=== PATIENT | female | born 1950 | race Caucasian/White ===

== ENCOUNTER → 2017-02-22 | Outpatient (CLI) | payer MEDICARE ==
--- NOTE | 2017-02-22 16:52 | US ---
EXAMINATION TYPE: US pelvic complete DATE OF EXAM: 02/22/2017 COMPARISON: NONE CLINICAL HISTORY: 67-year-old female N95.0 Post menopausal bleeding. Discharge x 4 weeks, 4, para 3, miscarriage 1, history of and tubal ligation TECHNIQUE: Transvaginal (TV) and Transabdominal (TA) Date of LMP: 10+ years ago FINDINGS: Uterus: Anteverted measuring 8.2 x 3.2 x 4.3 cm. A scar is demonstrated. Additionally, th ere are prominent calcifications centrally along the uterine body and lower uterine segment. Endometrial Stripe: 0.3 cm Right Ovary: not seen Left Ovary: not seen No evident adnexal abnormality or cul-de-sac free fluid. IMPRESSION: 1. Prominent calcifications centrally within the uterus along the body and lower uterine segment. Fin dings could be secondary to prior infection or instrumentation. 2. Neither ovary could be visualized.
--- NOTE | 2017-02-22 16:56 | XR ---
EXAMINATION TYPE: XR chest 2V DATE OF EXAM: 02/22/2017 COMPARISON: 09/29/2013 HISTORY: 67-year-old female with shortness of breath for 6 months TECHNIQUE: PA and lateral views FINDINGS: The cardiomediastinal silhouette, aorta, and pulmonary vasculature are within normal limits. Lungs an d pleural spaces are clear. IMPRESSION: No acute cardiopulmonary process.
== END | disposition home or self-care (01) ==
LOC: RADUSWWP 12:30
PROVIDERS: ATTEND Family Medicine
DX: N85.8 Other specified noninflammatory disorders of uterus (principal); R06.00 Dyspnea, unspecified
CPT/HCPCS: 71020; 76830; 76856

== ENCOUNTER → 2018-04-28 | Outpatient (CLI) | payer MEDICARE ==
--- NOTE | 2018-04-30 14:25 | MM ---
Reason for exam: screening (asymptomatic). Last mammogram was performed 1 year and 1 month ago. History: Patient is postmenopausal and has history of other cancer at age 61. MG 3D Screening Mammo W/Cad Bilateral CC and MLO view(s) were taken. Prior study comparison: March 30, 2017, bilateral MG 3d screening mammo w/cad. March 26, 2016, bilateral MG 3d screening mammo w/cad. The breast tissue is heterogeneously dense. This may lower the sensitivity of mammography. There are stable benign calcifications in the right breast. No discrete abnormality. No significant changes when compared with prior studies. ASSESSMENT: Benign, BI-RAD 2 RECOMMENDATION: Routine screening mammogram of both breasts in 1 year.
== END | disposition home or self-care (01) ==
LOC: RADMAMWWP 13:47
PROVIDERS: ATTEND Family Medicine
DX: Z12.31 Encounter for screening mammogram for malignant neoplasm of breast (principal)
CPT/HCPCS: 77063; 77067

== ENCOUNTER → 2019-05-16 | Outpatient (CLI) | payer MEDICARE ==
--- NOTE | 2019-05-16 17:23 | BD ---
EXAMINATION TYPE: Axial Bone Density DATE OF EXAM: 05/16/2019 COMPARISON: 03/30/2017 CLINICAL HISTORY: 69-year-old female postmenopausal screening Height: 60.2 IN Weight: 134 LBS RISK FACTORS HISTORY OF: Active: YES Postmenopausal woman: AGE 57 Take estrogen and/or progesterone medications: NOT NOW How long: CONTROL FOR 5 YEARS MEDICATIONS: Additional Medications: CHOLESTEROL MEDS, EYE DROPS, FISH OIL, VIT B, TURMERIC, EXAM MEASUREMENTS: Bone mineral densitometry was performed using the [employer] System. Bone mineral density as measured about the Lumbar spine is: ----- L1-L4(G/cm2): 1.268 T Score Values are as follows: ----- L2: -0.5 ----- L3: 0.9 ----- L4: 2.9 ----- L1-L4: 0.7 Bone mineral density has: Increased 0.1% since study of: 03/30/2017 Bone mineral density about the R hip (g/cm2): 0.888 Bone mineral density about the L hip (g/cm2): 0.874 T Score values are as follows: -----R Neck: -1.1 -----L Neck: -1.2 -----R Total: -0.8 -----L Total: -0.4 Bone mineral density has: Decreased -2.7% since study of: 03/30/2017 IMPRESSION: Osteopenia (T Score between -2.5 and -1). There is slightly increased risk of fracture and the patient may be considered for treatment. Re-Screen 2-5 years. NOTE: T-SCORE=SD OF THE YOUNG ADULT MEAN.
--- NOTE | 2019-05-17 11:23 | MM ---
Reason for exam: screening (asymptomatic). Last mammogram was performed 1 year and 1 month ago. History: Patient is postmenopausal and has history of other cancer at age 61. Took hormonal contraceptives for 5 years. Physical Findings: A clinical breast exam by your physician is recommended on an annual basis and results should be correlated with mammographic findings. MG 3D Screening Mammo W/Cad Bilateral CC and MLO view(s) were taken. Prior study comparison: April 28, 2018, bilateral MG 3d screening mammo w/cad. March 30, 2017, bilateral MG 3d screening mammo w/cad. The breast tissue is heterogeneously dense. This may lower the sensitivity of mammography. There is no discrete abnormality. No significant changes when compared with prior studies. ASSESSMENT: Negative, BI-RAD 1 RECOMMENDATION: Routine screening mammogram of both breasts in 1 year.
== END | disposition home or self-care (01) ==
LOC: RADMAMWWP 12:32
PROVIDERS: ATTEND Family Medicine
DX: Z12.31 Encounter for screening mammogram for malignant neoplasm of breast (principal); M85.80 Other specified disorders of bone density and structure, unspecified site; Z78.0 Asymptomatic menopausal state
CPT/HCPCS: 77063; 77067; 77080

== ENCOUNTER 2020-02-19 17:01 | Emergency (ER) | payer MEDICARE ==
[2020-02-19 17:11] VITALS: RESP 18
[2020-02-19] MEDS ORDERED: PANTOPRAZOLE 40 MG/10 ML VIAL IVP STA (17:58)
[2020-02-19] MEDS ORDERED: MAG HYDROX/AL HYDROX/SIMETH 30 ML, HYOSCYAMINE ELIXIR 10 ML, LIDOCAINE VISCOUS 2% 10 ML PO STA ×3 (18:13)
--- NOTE | 2020-02-19 18:19 | ED ---
General Adult HPI - General Chief complaint: Chest Pain Stated complaint: heartburn-sent by PCP Time Seen by Provider: 02/19/20 17:58 Source: patient, RN notes reviewed, old records reviewed Mode of arrival: ambulatory Limitations: no limitations - History of Present Illness Initial comments: 70-year-old female presenting for evaluation of chest pain and indigestion. Patient's symptoms have been ongoing for several months, she called her primary care physician today who recommended she present to the emergency department for evaluation. She denies any exertional chest pain. She states that she believes this is just heart burn. No associated dyspnea. No vomiting. No diaphoresis. No known history of coronary artery disease. she is a nonsmoker, nondiabetic. - Related Data Home Medications Medication Instructions Recorded Confirmed Latanoprost Ophth [Xalatan 0.005%] 1 drops BOTH EYES HS 09/29/13 02/19/20 Timolol 0.5% Ophth Soln [Timoptic 1 drop BOTH EYES BID 09/29/13 02/19/20 0.5% Ophth Soln] Dorzolamide HCl/Pf [Dorzolamide 2% 1 drop BOTH EYES BID 02/19/20 02/19/20 Eye Drop] Naproxen Sodium [Aleve] 220 mg PO DAILY PRN 02/19/20 02/19/20 Previous Rx's Medication Instructions Recorded Omeprazole [PriLOSEC] 20 mg PO AC-BID #60 cap 02/19/20 Allergies Allergy/AdvReac Type Severity Reaction Status Date / Time No Known Allergies Allergy Verified 02/19/20 19:11 Review of Systems ROS Statement: Those systems with pertinent positive or pertinent negative responses have been documented in the HPI. ROS Other: All systems not noted in ROS Statement are negative. Past Medical History Additional Past Medical History / Comment(s): GLAUCOMA History of Any Multi-Drug Resistant Organisms: None Reported Past Surgical History: Section Past Anesthesia/Blood Transfusion Reactions: No Reported Reaction Past Psychological History: No Psychological Hx Reported Smoking Status: Never smoker Past Alcohol Use History: Occasional - Past Family History Mother Family Medical History: Hypertension General Exam Limitations: no limitations General appearance: alert, in no apparent distress Head exam: Present: atraumatic, normocephalic Eye exam: Present: normal appearance, PERRL ENT exam: Present: normal exam Neck exam: Present: normal inspection. Absent: tenderness, meningismus Respiratory exam: Present: normal lung sounds bilaterally. Absent: respiratory distress, wheezes Cardiovascular Exam: Present: regular rate, normal rhythm GI/Abdominal exam: Present: soft. Absent: distended, tenderness Extremities exam: Present: normal inspection, normal capillary refill. Absent: pedal edema, calf tenderness Neurological exam: Present: alert, oriented X3, CN II-XII intact. Absent: motor sensory deficit Psychiatric exam: Present: normal affect, normal mood Skin exam: Present: warm, dry, intact. Absent: cyanosis, diaphoretic Course Vital Signs 02/19/20 17:08 Temperature 98.1 F Pulse Rate 80 Respiratory 18 Rate Blood Pressure 124/69 O2 Sat by Pulse 97 Oximetry - Reevaluation(s) Reevaluation #1: 02/19/20 19:34 patient's symptoms resolved with GI cocktail and Protonix. EKG Findings - EKG Comments: EKG Findings:: EKG: Normal sinus rhythm, ST segment depression in the lateral precordial leads, no ST segment elevation.rate of 77, NC interval 146 QRS duration 80, QTc 423 Medical Decision Making - Medical Decision Making 62-year-old female presenting with burning epigastric and chest pain for the past one month or greater. She does not have any typical chest pain features. She has no known history of coronary artery disease. Her pain is resolved with a GI cocktail and Protonix. EKG is sinus rhythm without ST segment elevation, she has a negative troponin in the emergency department. She has a CBC showing leukopenia with an absolute neutrophils count of 800. She has a normal CMP. I did plan for this patient observation for further cardiac testing although I think her symptoms are likely related to gastric reflux. She declines. She feels completely better after GI cocktail and wishes to follow up as an outp atient. She will discuss her leukopenia with her primary care physician and she will discuss her additional symptoms with cardiology. She will be prescribed a proton pump inhibitor and will return with any worsening or changing symptoms. - Lab Data Result diagrams: 02/19/20 18:17 02/19/20 18:17 Lab Results 02/19/20 02/19/20 02/19/20 Range/Units 18:17 18:17 18:17 WBC 2.0 L (3.8-10.6) k/uL RBC 4.24 (3.80-5.40) m/uL Hgb 14.2 (11.4-16.0) gm/dL Hct 42.5 (34.0-46.0) % MCV 100.4 H (80.0-100.0) fL MCH 33.5 (25.0-35.0) pg MCHC 33.4 (31.0-37.0) g/dL RDW 12.2 (11.5-15.5) % Plt Count 106 L (150-450) k/uL Neutrophils % 39 % Lymphocytes % 46 % Monocytes % 7 % Eosinophils % 2 % Basophils % 2 % Neutrophils # 0.8 L (1.3-7.7) k/uL Lymphocytes # 0.9 L (1.0-4.8) k/uL Monocytes # 0.2 (0-1.0) k/uL Eosinophils # 0.1 (0-0.7) k/uL Basophils # 0.0 (0-0.2) k/uL PT 10.0 (9.0-12.0) sec INR 1.0 (<1.2) APTT 28.2 (22.0-30.0) sec Sodium 139 (137-145) mmol/L Potassium 4.3 (3.5-5.1) mmol/L Chloride 110 H (98-107) mmol/L Carbon Dioxide 25 (22-30) mmol/L Anion Gap 4 mmol/L BUN 23 H (7-17) mg/dL Creatinine 0.77 (0.52-1.04) mg/dL Est GFR (CKD-EPI)AfAm >90 (>60 ml/min/1.73 sqM) Est GFR (CKD-EPI)NonAf 80 (>60 ml/min/1.73 sqM) Glucose 98 (74-99) mg/dL Calcium 9.4 (8.4-10.2) mg/dL Magnesium 1.8 (1.6-2.3) mg/dL Total Bilirubin 1.1 (0.2-1.3) mg/dL AST 38 H (14-36) U/L ALT 20 (4-34) U/L Alkaline Phosphatase 59 (38-126) U/L Troponin I (0.000-0.034) ng/mL Total Protein 6.7 (6.3-8.2) g/dL Albumin 4.2 (3.5-5.0) g/dL Lipase 185 (23-300) U/L 02/19/20 Range/Units 18:17 WBC (3.8-10.6) k/uL RBC (3.80-5.40) m/uL Hgb (11.4-16.0) gm/dL Hct (34.0-46.0) % MCV (80.0-100.0) fL MCH (25.0-35.0) pg MCHC (31.0-37.0) g/dL RDW (11.5-15.5) % Plt Count (150-450) k/uL Neutrophils % % Lymphocytes % % Monocytes % % Eosinophils % % Basophils % % Neutrophils # (1.3-7.7) k/uL Lymphocytes # (1.0-4.8) k/uL Monocytes # (0-1.0) k/uL Eosinophils # (0-0.7) k/uL Basophils # (0-0.2) k/uL PT (9.0-12.0) sec INR (<1.2) APTT (22.0-30.0) sec Sodium (137-145) mmol/L Potassium (3.5-5.1) mmol/L Chloride (98-107) mmol/L Carbon Dioxide (22-30) mmol/L Anion Gap mmol/L BUN (7-17) mg/dL Creatinine (0.52-1.04) mg/dL Est GFR (CKD-EPI)AfAm (>60 ml/min/1.73 sqM) Est GFR (CKD-EPI)NonAf (>60 ml/min/1.73 sqM) Glucose (74-99) mg/dL Calcium (8.4-10.2) mg/dL Magnesium (1.6-2.3) mg/dL Total Bilirubin (0.2-1.3) mg/dL AST (14-36) U/L ALT (4-34) U/L Alkaline Phosphatase (38-126) U/L Troponin I <0.012 (0.000-0.034) ng/mL Total Protein (6.3-8.2) g/dL Albumin (3.5-5.0) g/dL Lipase (23-300) U/L Disposition Clinical Impression: Atypical chest pain, Leukopenia Disposition: HOME SELF-CARE Condition: Good Instructions (If sedation given, give patient instructions): Chest Pain (ED) Additional Instructions: please follow up with her primary care physician regarding her symptoms as well as low white blood cell count. Please follow with her net programmer, please return with any worsening or changing symptoms. Prescriptions: Omeprazole [PriLOSEC] 20 mg PO AC-BID #60 cap Is patient prescribed a controlled substance at d/c from ED?: No Referrals: Evan Tellez MD [Primary Care Provider] - 1-2 days Time of Disposition: 19:42
[2020-02-19 18:29] LABS: Basophils % (A) 2 %; Eosinophils # (A) 0.1 k/uL (0-0.7); Eosinophils % (A) 2 %; HCT 42.5 % (34.0-46.0); HGB 14.2 gm/dL (11.4-16.0); Lymphocytes # (A) 0.9 k/uL (1.0-4.8); Lymphocytes % (A) 46 %; MCH 33.5 pg (25.0-35.0); MCHC 33.4 g/dL (31.0-37.0); MCV 100.4 fL (80.0-100.0); Mean Platelet Volume 8.7; Monocytes # (A) 0.2 k/uL (0-1.0); Monocytes % (A) 7 %; Neutrophils # (A) 0.8 k/uL (1.3-7.7); Neutrophils % (A) 39 %; Platelet Count 106 k/uL (150-450); RBC 4.24 m/uL (3.80-5.40); RDW 12.2 % (11.5-15.5)
[2020-02-19 18:39] LABS: ALT 20 U/L (4-34); AST 38 U/L (14-36); African American GFR (CKD) >90 (>60 ml/min/1.73 sqM); Albumin 4.2 g/dL (3.5-5.0); Alkaline Phosphatase 59 U/L (38-126); Anion Gap 4 mmol/L; Blood Urea Nitrogen 23 mg/dL (7-17); Calcium 9.4 mg/dL (8.4-10.2); Carbon Dioxide 25 mmol/L (22-30); Chloride 110 mmol/L (98-107); Glucose 98 mg/dL (74-99); Lipase 185 U/L (23-300); Magnesium 1.8 mg/dL (1.6-2.3); Non-African American GFR(CKD) 80 (>60 ml/min/1.73 sqM); Potassium 4.3 mmol/L (3.5-5.1); Sodium 139 mmol/L (137-145); Total Bilirubin 1.1 mg/dL (0.2-1.3); Total Protein 6.7 g/dL (6.3-8.2)
--- NOTE | 2020-02-19 18:42 | XR ---
EXAMINATION TYPE: XR chest 2V DATE OF EXAM: 02/19/2020 COMPARISON: 02/22/2017 HISTORY: Short of breath. Chest pain TECHNIQUE: FINDINGS: Heart and mediastinum are normal. Lungs are clear of infiltrate. Costophrenic angles are cl ear. There are no hilar masses. The bony thorax is intact. IMPRESSION: No active cardiopulmonary disease. No change.
[2020-02-19 18:47] LABS: Partial Thromboplastin Time 28.2 sec (22.0-30.0)
[2020-02-19 20:03] VITALS: BP 120/68; PULSE 67; TEMP 99
== END 2020-02-19 20:03 | disposition home or self-care (01) ==
LOC: EC 17:01
DX: R07.89 Other chest pain (principal); D72.819 Decreased white blood cell count, unspecified
CPT/HCPCS: 36415; 93005; 83880; 80053; 83690; 83735; 84484; 85025; 85610; 85730; 71046; 99285; 96374; C9113

== ENCOUNTER → 2020-03-21 | Outpatient (CLI) | payer MEDICARE ==
--- NOTE | 2020-03-22 07:26 | XR ---
EXAMINATION TYPE: XR Hip Bilateral Complete DATE OF EXAM: 03/21/2020 COMPARISON: None HISTORY: Pain TECHNIQUE: Bilateral hips FINDINGS: Femoral heads articulate with the acetabulum. Joint spaces are preserved. No acute fracture or dislocation is evident. Symphysis pubis is visualized appears normal. Sacroiliac joints within th e [id number] are normal. IMPRESSION: 1. Normal bilateral hips
== END | disposition home or self-care (01) ==
LOC: RAD 17:01
PROVIDERS: ATTEND Nurse Practitioner
DX: M16.0 Bilateral primary osteoarthritis of hip (principal)
CPT/HCPCS: 73521

== ENCOUNTER → 2020-06-20 | Outpatient (CLI) | payer MEDICARE ==
--- NOTE | 2020-06-20 14:31 | MM ---
Reason for exam: screening (asymptomatic). Last mammogram was performed 1 year and 1 month ago. History: Patient is postmenopausal and has history of other cancer at age 61. Took hormonal contraceptives for 5 years. Physical Findings: A clinical breast exam by your physician is recommended on an annual basis and results should be correlated with mammographic findings. MG 3D Screening Mammo W/Cad Bilateral CC and MLO view(s) were taken. Prior study comparison: May 16, 2019, bilateral MG 3d screening mammo w/cad. April 28, 2018, bilateral MG 3d screening mammo w/cad. The breast tissue is heterogeneously dense. This may lower the sensitivity of mammography. Finding #1: There is a 14 mm mass in the left breast. Finding #2: There are typically benign calcifications in the right breast. ASSESSMENT: Incomplete: need additional imaging evaluation, BI-RAD 0 RECOMMENDATION: Special view mammogram of the left breast. If lesion persists on supplemental views, image directed ultrasound is recommended. [facility] will attempt to contact patient to return for supplemental views and ultrasound if indicated.
== END | disposition home or self-care (01) ==
LOC: RADMAMWWP 13:49
PROVIDERS: ATTEND Family Medicine
DX: Z12.31 Encounter for screening mammogram for malignant neoplasm of breast (principal)
CPT/HCPCS: 77063; 77067

== ENCOUNTER → 2020-06-25 | Outpatient (CLI) | payer MEDICARE ==
--- NOTE | 2020-06-25 09:51 | MM ---
Reason for exam: additional evaluation requested from abnormal screening. Last mammogram was performed less than 1 month ago. History: Patient is postmenopausal and has history of other cancer at age 61. Took hormonal contraceptives for 5 years. Physical Findings: Nurse did not find any significant physical abnormalities on exam. MG 3D Work Up W/Cad LT Spot compression CC, spot compression MLO, and ML view(s) were taken of the left breast. Prior study comparison: June 20, 2020, bilateral MG 3d screening mammo w/cad. May 16, 2019, bilateral MG 3d screening mammo w/cad. The breast tissue is heterogeneously dense. This may lower the sensitivity of mammography. Focal asymmetry, disperses on compression and ML view. This finding is changed when compared with previous exams. These results were verbally communicated with the patient and result sheet given to the patient on 06/25/20. ASSESSMENT: Probably benign, BI-RAD 3 RECOMMENDATION: Follow-up diagnostic mammogram of the left breast in 6 months.
== END ==
LOC: RADMAMWWP 08:15
PROVIDERS: ATTEND Family Medicine
DX: R92.8 Other abnormal and inconclusive findings on diagnostic imaging of breast (principal); Z78.0 Asymptomatic menopausal state
CPT/HCPCS: 77065; G0279; 77061

== ENCOUNTER → 2020-09-30 | Outpatient (CLI) | payer MEDICARE ==
[2020-09-30 14:20] LABS: African American GFR (CKD) >90 (>60 ml/min/1.73 sqM); Blood Urea Nitrogen 19 mg/dL (7-17); Non-African American GFR(CKD) >90 (>60 ml/min/1.73 sqM)
--- NOTE | 2020-09-30 15:49 | CT ---
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 Coronal and sagittal reconstructions performed. CT DLP: 328.80 mGycm Automated exposure control for dose reduction was used. FINDINGS: Partially visualized borderline enlarged caliber to the main right coronary artery at 2.7 cm. There m ay be some small calcified lymph nodes of the right hilum. Tiny hypodense nodule suggested within the thyroid gland measuring up to 5 mm. The submandibular glan ds appear satisfactory. Parotid glands show no discrete abnormality. Possible cerebellar tonsillar ectopia. This can be better assessed with MRI of the brain. Otherwise, visualized intracranial structures, orbits and globes, paranasal sinuses, and mastoid air cells appea r clear. The nasopharynx is clear. Nodularity extending into the left vallecular space suggests lingual tonsil lar hypertrophy. Oropharynx otherwise clear. Epiglottis and prevertebral soft tissues are satisfactory. Glottic and subglottic structures as well as the tracheal column appear clear. Biapical pleural paren chymal scarring. No cervical lymphadenopathy identified by CT size criteria. Bones: Hypertrophic facet arthropathy. Degenerative grade 1 anterolisthesis C4-C5 and C5-C6. IMPRESSION: 1. 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 MRI BRAIN CAN EXCLUDE A CHIARI I MALFORMATION. 2. MILD LINGUAL TONSILLAR HYPERTROPHY PARTICULARLY ON THE LEFT. THE REMAINDER OF THE MUCOSAL SPACE SH OWS NO DISCRETE ABNORMALITY BY CT. 3. NO CERVICAL LYMPHADENOPATHY OR SUSPICIOUS NECK MASS IDENTIFIED.
== END | disposition home or self-care (01) ==
LOC: RADCTMAIN 13:33
PROVIDERS: ATTEND Otolaryngology
DX: J38.01 Paralysis of vocal cords and larynx, unilateral (principal); J35.1 Hypertrophy of tonsils
CPT/HCPCS: 82565; 84520; 70491; 36415; Q9967

== ENCOUNTER → 2020-10-30 | Outpatient (CLI) | payer MEDICARE ==
--- NOTE | 2020-10-30 15:44 | US ---
EXAMINATION TYPE: US thyroid st tissue head/neck DATE OF EXAM: 10/30/2020 COMPARISON: CT 09/30/2020 CLINICAL HISTORY: E04.1 Thyroid Nodule. GLAND SIZE: Right Lobe: 4.2 x 1.4 x 1.6 cm Overall Parenchyma: heterogenous Left Lobe: 4.8 x 1.3 x 1.6 cm Overall Parenchyma: heterogeneous Isthmus Thickness: 0.3 cm NODULES RIGHT: # of nodules measured on right: Multiple small subcentimeter cysts throughout. LEFT: # of nodules measured on left: 2 1. 1.0 X 0.4 x 0.9 cm, lower mid, solid or almost completely solid, hypoechoic nodule, which is wi ana than tall, with smooth margins, without echogenic foci. Prior size: no prior 2. 0.9 X 0.6 x 0.8 cm, mid mid, solid or almost completely solid, hypoechoic nodule, which is wide r than tall, with smooth margins, without echogenic foci. Prior size: no prior ISTHMUS: # of nodules measured in the isthmus: 0 Bilateral neck scanned, no evidence of lymphadenopathy. IMPRESSION: Left thyroid nodules, as described. 2017 ACR TI-RADS LEVEL: TR-RADS 4 - Moderately Suspicious: Follow if > 1 cm, FNA if > 1.5 cm *Highest TI-RADS level nodule reported
== END | disposition home or self-care (01) ==
LOC: RADUSWWP 15:20
PROVIDERS: ATTEND Otolaryngology
DX: E04.2 Nontoxic multinodular goiter (principal)
CPT/HCPCS: 76536

== ENCOUNTER → 2021-01-01 | Outpatient (CLI) | payer MEDICARE ==
--- NOTE | 2021-01-07 12:13 | MM ---
Reason for exam: follow-up at short interval from prior study. Last mammogram was performed 6 months ago. History: Patient is postmenopausal and has history of other cancer at age 61. Took hormonal contraceptives for 5 years. Physical Findings: Nurse did not find any significant physical abnormalities on exam. MG 3D Diag Mammo W/Cad LT CC, MLO, and XCCL view(s) were taken of the left breast. Prior study comparison: June 20, 2020, bilateral MG 3d screening mammo w/cad. May 16, 2019, bilateral MG 3d screening mammo w/cad. The breast tissue is heterogeneously dense. This may lower the sensitivity of mammography. Asymmetric breast tissue left middle depth upper aspect, stable. There is no discrete abnormality. These results were verbally communicated with the patient and result sheet given to the patient on 01/01/21. ASSESSMENT: Benign, BI-RAD 2 RECOMMENDATION: Return to routine screening mammogram schedule for both breasts. Back on schedule.
== END | disposition home or self-care (01) ==
LOC: RADMAMWWP 10:21
PROVIDERS: ATTEND Family Medicine
DX: N64.89 Other specified disorders of breast (principal); Z85.89 Personal history of malignant neoplasm of other organs and systems
CPT/HCPCS: 77065; G0279; 77061

== ENCOUNTER → 2021-05-09 | Outpatient (CLI) | payer MEDICARE ==
--- NOTE | 2021-05-09 14:28 | US ---
EXAMINATION TYPE: US thyroid st tissue head/neck DATE OF EXAM: 05/09/2021 COMPARISON: US Thyroid 10/2020 CLINICAL HISTORY: E04.1 Thyroid Nodule. Follow up exam for thyroid nodules GLAND SIZE: Right Lobe: 4.7 x 1.5 x 1.7 cm Overall Parenchyma: heterogenous Left Lobe: 4.3 x 1.3 x 1.5 cm Overall Parenchyma: heterogeneous Isthmus Thickness: 0.28 cm NODULES RIGHT: # of nodules measured on right: 0 measured; multiple subcentimeter nodules throughout LEFT: # of nodules measured on left: 2 1. 1.0 X 0.6 x 0.9 cm, mid lateral, solid or almost completely solid, hypoechoic nodule, which is w ider than tall, with smooth margins, without echogenic foci. Prior size: 0.9 x 0.6 x 0.8 cm 2. 1.2 X 0.5 x 0.9 cm, lower mid, solid or almost completely solid, hypoechoic nodule, which is wi ana than tall, with smooth margins, without echogenic foci. TR 4 Prior size: 1.0 x 0.4 x 0.9 cm ISTHMUS: # of nodules measured in the isthmus: 1 1. 0.8 X 0.3 x 0.7 cm solid or almost completely solid, hypoechoic nodule, which is wider than tall , with smooth margins, without echogenic foci. Bilateral neck scanned, no evidence of lymphadenopathy. IMPRESSION: Moderately suspicious nodule left lobe thyroid. Follow-up in one year is recommended. 2017 ACR TI-RADS LEVEL: TR-RADS 4 - Moderately Suspicious: Follow if > 1 cm, FNA if > 1.5 cm *Highest TI-RADS level nodule reported
== END | disposition home or self-care (01) ==
LOC: RADUSWWP 10:13
PROVIDERS: ATTEND Otolaryngology
DX: E04.1 Nontoxic single thyroid nodule (principal)
CPT/HCPCS: 76536

== ENCOUNTER → 2021-07-23 | Outpatient (CLI) | payer MEDICARE ==
--- NOTE | 2021-07-23 17:11 | BD ---
EXAMINATION TYPE: Axial Bone Density DATE OF EXAM: 07/23/2021 COMPARISON: NONE CLINICAL HISTORY: 71 years year old Female. ICD-10 CODE: Z78.0 ASYMPTOMATIC MENOPAUSAL STATE Height: 61 Weight: 139.5 FRAX RISK QUESTIONS: Alcohol (3 or more units per day): NO Family History (Parent hip fracture): NO Glucocorticoids (More than 3mos): NO (Ex: prednisone, prednisolone, methylprednisolone, dexamethasone, and hydrocortisone). History of Fracture in Adulthood: NO Secondary Osteoporosis: 1. Type 1 Diabetes: NO 2. Hyperthyroidism: NO 3. Menopause before 45: NO Rheumatoid Arthritis: NO Current Tobacco Use: NO RISK FACTORS HISTORY OF: Active: YES Diet low in dairy products/other sources of calcium: YES Postmenopausal woman: YES MEDICATIONS: Additional Medications: CALCIUM EXAM MEASUREMENTS: Bone mineral densitometry was performed using the [employer] System. Bone mineral density as measured about the Lumbar spine is: ----- L1-L4(G/cm2): 1.242 T Score Values are as follows: ----- L1: -0.6 ----- L2: -0.6 ----- L3: -0.6 ----- L4: 2.1 ----- L1-L4: 0.5 Bone mineral density has: DECREASED -2.1% % since study of: 05.16.2019 Bone mineral density about the R hip (g/cm2): 0.888 Bone mineral density about the L hip (g/cm2): 0.914 T Score values are as follows: -----R Neck: -1.1 -----L Neck: -0.9 -----R Total: -0.8 -----L Total: -0.5 Bone mineral density has: INCREASED 0.1 % since study of: 05.16.2019 FRAX%s: The graph provided illustrates a 8.9% chance for a major osteoporotic fx and a 0.9% chance fo r the hips probability for fx in 10 years time. IMPRESSION: Osteopenia (T Score between -2.5 and -1). There is slightly increased risk of fracture and the patient may be considered for treatment. Re-Screen 2-5 years. NOTE: T-SCORE=SD OF THE YOUNG ADULT MEAN.
--- NOTE | 2021-07-25 10:39 | MM ---
Reason for exam: screening (asymptomatic). Last mammogram was performed 7 months ago. History: Patient is postmenopausal and has history of other cancer at age 61. Took hormonal contraceptives for 5 years. Physical Findings: A clinical breast exam by your physician is recommended on an annual basis and results should be correlated with mammographic findings. MG 3D Screening Mammo W/Cad Bilateral CC and MLO view(s) were taken. Prior study comparison: January 01, 2021, left breast MG 3d diag mammo w/cad LT. June 20, 2020, bilateral MG 3d screening mammo w/cad. May 16, 2019, bilateral MG 3d screening mammo w/cad. April 28, 2018, bilateral MG 3d screening mammo w/cad. The breast tissue is heterogeneously dense. This may lower the sensitivity of mammography. No significant changes when compared with prior studies. ASSESSMENT: Negative, BI-RAD 1 RECOMMENDATION: Routine screening mammogram of both breasts in 1 year.
== END | disposition home or self-care (01) ==
LOC: RADBDWWP 12:38
PROVIDERS: ATTEND Family Medicine
DX: Z12.31 Encounter for screening mammogram for malignant neoplasm of breast (principal); M85.851 Other specified disorders of bone density and structure, right thigh; Z78.0 Asymptomatic menopausal state
CPT/HCPCS: 77063; 77067; 77080

== ENCOUNTER → 2021-10-29 | Outpatient (CLI) | payer MEDICARE ==
--- NOTE | 2021-10-29 14:35 | US ---
EXAMINATION TYPE: US thyroid st tissue head/neck DATE OF EXAM: 10/29/2021 COMPARISON: US 04/2021 CLINICAL HISTORY: E04.1 NONTOXIC SINGLE THYROID NODULE. Nodules GLAND SIZE: Right Lobe: 4.4 x 1.3 x 1.4 cm Overall Parenchyma: heterogenous Left Lobe: 4.4 x 1.5 x 1.5 cm Overall Parenchyma: heterogeneous Isthmus Thickness: 0.3 cm NODULES RIGHT: # of nodules measured on right: 1 , multiple subcentimeter nodules seen throughout 1. 0.6 x 0.3 x 0.4 cm, upper mid, spongiform, hypoechoic nodule, which is wider than tall, with smoo th margins, with echogenic foci. LEFT: # of nodules measured on left: 2 1. 1.0 x 0.6 x 0.8cm, mid lateral, solid or almost completely solid, hypoechoic nodule, which is wid er than tall, with smooth margins, without echogenic foci. Prior size: 1.0 x 0.6 x 0.9 cm 2. 1.1 x 0.6 x 0.8 cm, lower mid, solid or almost completely solid, hypoechoic nodule, which is nikko ler than wide, with smooth margins, without echogenic foci. Prior size: 1.2 x 0.5 x 0.9cm ISTHMUS: # of nodules measured in the isthmus: 1 1. 0.9 X 0.3 x 0.6 cm spongiform, hypoechoic nodule, which is wider than tall, with smooth margins, without echogenic foci. Prior size:0.8 x 0.3 x 0.7cm Bilateral neck scanned, no evidence of lymphadenopathy. IMPRESSION: Stable nonspecific subcentimeter nodularity and glandular heterogeneity.
== END | disposition home or self-care (01) ==
LOC: RADUSWWP 13:28
PROVIDERS: ATTEND Otolaryngology
DX: E04.2 Nontoxic multinodular goiter (principal)
CPT/HCPCS: 76536

== ENCOUNTER → 2022-04-21 | Outpatient (CLI) | payer MEDICARE ==
--- NOTE | 2022-04-21 15:58 | US ---
EXAMINATION TYPE: US thyroid st tissue head/neck DATE OF EXAM: 04/21/2022 COMPARISON: 10/30/2020 CLINICAL HISTORY: 72-year-old female E04.1 Thyroid nod Thyroid nodule. TECHNIQUE: Multiple sonographic images of the thyroid gland are obtained. FINDINGS: GLAND SIZE: Right Lobe: 4.5 x 1.2 x 1.4 cm Overall Parenchyma: homogenous Left Lobe: 4.5 x 1.6 x 1.8 cm Overall Parenchyma: homogeneous Isthmus Thickness: .3 cm NODULES RIGHT: # of nodules measured on right: multiple subcentimeter cysts, largest upper pole. 1. .6 X .4 x .4 cm, cyst Prior size: .6 x .3 x .4 cm LEFT: # of nodules measured on left: 2 1. 1.2 X .7 x .9 cm, mid , solid or almost completely solid, hypoechoic TR4 nodule, which is wider than tall, with smooth margins, without echogenic foci. Prior size: 1.0 x .6 x .8 cm 2. 1.2 X .6 x .9 cm, lower , solid or almost completely solid, hypoechoic nodule, which is wider t [place] tall, with smooth margins, without echogenic foci. Prior size: 1.1 x .6 x .8 cm ISTHMUS: # of nodules measured in the isthmus: .3 1. .8 X .3 x .7 cm spongiform nodule Prior size: .9 x .3 x .6 cm Bilateral neck scanned, no evidence of lymphadenopathy. IMPRESSION: Multiple cysts in the right thyroid lobe measuring up to 6 mm. A solid TR4 nodule in the left lobe is slightly larger at 1.2 x 0.9 cm (versus 1.0 x 0.8 cm, previously). Continue to follow. FNA if it reilly ches 1.5 cm.
== END | disposition home or self-care (01) ==
LOC: RADUSWWP 12:01
PROVIDERS: ATTEND Otolaryngology
DX: E04.2 Nontoxic multinodular goiter (principal)
CPT/HCPCS: 76536

== ENCOUNTER → 2022-07-24 | Outpatient (CLI) | payer MEDICARE ==
--- NOTE | 2022-07-27 08:03 | MM ---
Reason for Exam: Screening (asymptomatic). Last screening mammogram was performed 12 month(s) ago. Patient History: Menarche at age 16. First Full-Term at age 29. Postmenopausal. Other cancer, age 61. Patient used Hormonal Contraceptives for 5 years. Risk Values: Harmony 5 year model risk: 1.7%. NCI Lifetime model risk: 5.1%. Prior Study Comparison: 06/25/2020 Left Diagnostic Mammogram, [facility]. 01/01/2021 Left Diagnostic Mammogram, [facility]. 07/23/2021 Bilateral Screening Mammogram, [facility]. Tissue Density: The breast tissue is heterogeneously dense. This may lower the sensitivity of mammography. Findings: Analyzed By CAD. There is no suspicious group of microcalcifications or new suspicious mass in either breast. Overall Assessment: Negative, BI-RAD 1 Management: Screening Mammogram of both breasts in 1 year. A clinical breast exam by your physician is recommended on an annual basis and results should be correlated with mammographic findings. Electronically signed and approved by: Kwesi Suazo M.D. Radiologis
== END | disposition home or self-care (01) ==
LOC: RADMAMWWP 13:16
PROVIDERS: ATTEND Family Medicine
DX: Z12.31 Encounter for screening mammogram for malignant neoplasm of breast (principal); Z78.0 Asymptomatic menopausal state
CPT/HCPCS: 77063; 77067

== ENCOUNTER → 2022-08-13 | Outpatient (CLI) | payer MEDICARE ==
[2022-08-13 15:58] LABS: ALT 13 U/L (8-44); AST 23 U/L (13-35); Chol/HDL Ratio 3.68 Ratio; LDL Cholesterol,Calculated 193.6 mg/dL (0.0-131.0); VLDL Calculation 11.06 mg/dL (5.00-40.00)
== END | disposition home or self-care (01) ==
LOC: LABWHC1 07:29
PROVIDERS: ATTEND Nurse Practitioner Acute Care
DX: E78.2 Mixed hyperlipidemia (principal)
CPT/HCPCS: 36415; 80061; 84450; 84460

== ENCOUNTER → 2022-11-11 | Outpatient (CLI) | payer MEDICARE ==
--- NOTE | 2022-11-11 10:41 | US ---
EXAMINATION TYPE: US thyroid st tissue head/neck DATE OF EXAM: 11/11/2022 COMPARISON: Multiple thyroid ultrasounds with most recent 04/21/2022 CLINICAL INDICATION: Female, 72 years old with history of E04.1 NONTOXIC SINGLE THYROID NODULE; follo w up on known bilateral nodules GLAND SIZE: Right Lobe: 4.8 x 1.3 x 1.7cm cm Overall Parenchyma: diffusely heterogenous with scattered small nodules Left Lobe: 4.3 x 1.4 x 1.4 cm Overall Parenchyma: diffusely heterogenous with scattered small nodules Isthmus Thickness: 0.2 cm NODULES RIGHT: # of nodules measured on right: 1 1. 0.9 X 0.3 x 0.5 cm cystic nodule at the lateral mid pole. TR 2. Prior size: 0.6 x 0.4 x 0.4 cm LEFT: # of nodules measured on left: 2 1. 1.1 X 0.9 x 0.9 cm smooth solid nodule at the mid pole with internal vascularity. TR 4. Prior size: 1.2 x 0.7 x 0.9 cm 2. 1.2 X 0.6 x 0.9 cm smooth solid nodule at the lower pole with internal vascularity. TR 4. Prior size: 1.2 x 0.6 x 0.9 cm ISTHMUS: # of nodules measured in the isthmus: 1 1. 0.9 X 0.3 x 0.5 cm septated cystic nodule at the left lateral aspect of the isthmus. TR 3. Prior size: 0.8 x 0.3 x 0.7 cm Bilateral neck scanned, no evidence of lymphadenopathy. IMPRESSION: Stable bilateral thyroid nodules with 2 TR 4 nodules within the left thyroid lobe measuring up to 1.2 cm. Continued follow-up is recommended.
== END | disposition home or self-care (01) ==
LOC: RADUSWWP 09:55
PROVIDERS: ATTEND Otolaryngology
DX: E04.2 Nontoxic multinodular goiter (principal)
CPT/HCPCS: 76536

== ENCOUNTER → 2023-07-26 | Outpatient (CLI) | payer MEDICARE ==
--- NOTE | 2023-07-26 17:03 | MM ---
Reason for Exam: Screening (asymptomatic). Last screening mammogram was performed 12 month(s) ago. Patient History: Menarche at age 16. First Full-Term at age 29. Postmenopausal. Other cancer, age 61. Patient used Hormonal Contraceptives for 5 years. Risk Values: Harmony 5 year model risk: 1.8%. NCI Lifetime model risk: 4.9%. Prior Study Comparison: 01/01/2021 Left Diagnostic Mammogram, [facility]. 07/23/2021 Bilateral Screening Mammogram, [facility]. 07/24/2022 Bilateral MG 3D screening mammo w/cad, [facility]. Tissue Density: The breasts are heterogeneously dense, which may obscure small masses. Findings: Analyzed By CAD. The pattern is symmetrical. There is a focal asymmetry in the upper left mediolateral oblique view present previously. Benign round calcifications within the right breast. No significant interval changes are evident No suspicious groups of microcalcifications, spiculated or lobular masses, architectural distortion or other secondary signs of malignancy are mammographically apparent. Overall Assessment: Benign, BI-RAD 2 Management: Screening Mammogram of both breasts in 1 year. A negative mammogram report should not preclude additional follow up of suspicious palpable abnormalities. Patient should continue monthly self breast exam. A clinical breast exam by your physician is recommended on an annual basis and results should be correlated with mammographic findings. Electronically signed and approved by: Ash Warner D.O. Radiologis
--- NOTE | 2023-07-29 07:19 | BD ---
EXAMINATION TYPE: Axial Bone Density DATE OF EXAM: 07/26/2023 CLINICAL HISTORY: 73 years old Female. ICD-10 CODE: Z78.0 ASYMPTOMATIC MENOPAUSAL STA Height: Weight: FRAX RISK QUESTIONS: Family History (Parent hip fracture): yes mother 3. Menopause before 45: no at 54 RISK FACTORS HISTORY OF: nothing to note here MEDICATIONS: calcium, reflux meds, cholesterol meds, vit d, EXAM MEASUREMENTS: Bone mineral densitometry was performed using the [employer] System. Bone mineral density as measured about the Lumbar spine is: ----- L1-L4(G/cm2): 1.262 T Score Values are as follows: ----- L1: -0.2 ----- L2: -0.4 ----- L3: 0.9 ----- L4: 2.3 ----- L1-L4: 0.7 Z Score Values are as follows: ----- L1: 1.6 ----- L2: 1.4 ----- L3: 2.7 ----- L4: 4.1 ----- L1-L4: 2.5 Bone mineral density has: Increased 1.6% since study of: 07.23.2021 Bone mineral density about the R hip (g/cm2): 0.873 Bone mineral density about the L hip (g/cm2): 0.990 T Score values are as follows: -----R Neck: -1.3 -----L Neck: -1.1 -----R Total: -1.1 -----L Total: -0.1 Z Score values are as follows: -----R Neck: 0.6 -----L Neck: 0.7 -----R Total: 0.5 -----L Total: 1.5 Bone mineral density has: Increased 0.4% since study of: 07.23.2021 FRAX%s: The graph provided illustrates a 15.0% chance for a major osteoporotic fx and a 3.5% chance f or the hips probability for fx in 10 years time. IMPRESSION: Osteopenia (T Score between -2.5 and -1). There is slightly increased risk of fracture and the patient may be considered for treatment. Re-Screen 2-5 years. NOTE: T-SCORE=SD OF THE YOUNG ADULT MEAN.
== END | disposition home or self-care (01) ==
LOC: RADMAMWWP 08:55
PROVIDERS: ATTEND Family Medicine
DX: Z12.31 Encounter for screening mammogram for malignant neoplasm of breast (principal); M85.89 Other specified disorders of bone density and structure, multiple sites; Z78.0 Asymptomatic menopausal state
CPT/HCPCS: 77063; 77067; 77080

== ENCOUNTER → 2023-11-15 | Outpatient (CLI) | payer MEDICARE ==
--- NOTE | 2023-12-07 15:19 | US ---
Site ID [facility] Patient Serenity Guerrero, R ID [id number] Age/Gender: 73Y, F Order # N/A Procedure US thyroid st tissue head/neck Date 11/15/2023 10:24:00 AM EXAMINATION TYPE: US thyroid st tissue head/neck DATE OF EXAM: 12/06/2023 COMPARISON: Thyroid ultrasound 11/11/2022, 04/21/2022, 10/29/2021, 05/09/2021 CLINICAL INDICATION: Female, 73 year old with history of nontoxic multinodular goiter. GLAND SIZE: Right Lobe: 4.4 x 1.5 x 1.6 cm Overall Parenchyma: homogeneous Left Lobe: 4.4 x 1.8 x 1.6 cm Overall Parenchyma: homogeneous Isthmus Thickness: 0.2 cm NODULES RIGHT: Stable small hypoechoic subcentimeter nodules. No new or enlarging nodules identified. LEFT: # of nodules measured on left: 2 1. 1.4 X 0.9 x 1.1 cm, mid, solid or almost completely solid, hypoechoic nodule, which is wider [place] n tall, with smooth margins, without echogenic foci. TR 4. Prior size: 1.1 x 0.9 x 0.9 cm 2. 1.3 X 0.6 x 1.0 cm, lower , solid or almost completely solid, hypoechoic nodule, which is wider than tall, with smooth margins, without echogenic foci. TR 4. Prior size: 1.2 x 0.6 x 0.9 cm ISTHMUS: Stable small subcentimeter hypoechoic nodule. Bilateral neck scanned, no evidence of lymphadenopathy. IMPRESSION: Stable to marginal increase in size of left thyroid lobe nodules as described above. No new thyroid n odules identified. 2017 ACR TI-RADS LEVEL: TR-RADS 4 - Moderately Suspicious: Follow if > 1 cm, FNA if > 1.5 cm *Highest TI-RADS level nodule reported
== END | disposition home or self-care (01) ==
LOC: RADUSWWP 12:00
PROVIDERS: ATTEND Family Medicine
DX: R22.0 Localized swelling, mass and lump, head (principal); E04.2 Nontoxic multinodular goiter
CPT/HCPCS: 76536

== ENCOUNTER → 2024-06-05 | Outpatient (CLI) | payer MEDICARE ==
--- NOTE | 2024-06-05 13:32 | US ---
EXAMINATION TYPE: US thyroid st tissue head/neck DATE OF EXAM: 06/05/2024 COMPARISON: NONE CLINICAL INDICATION: Female, 74 years old with history of E04.1 SINGLE THYROID NODULE; follow up thyr oid nodules TECHNIQUE: Grayscale and color Doppler imaging of the thyroid gland. FINDINGS: GLAND SIZE: Right Lobe: 4.3 x 1.5 x 1.7 cm Overall Parenchyma: homogeneous Left Lobe: 4.6 x 1.7 x 1.8 cm Overall Parenchyma: homogeneous Isthmus Thickness: 0.4 cm NODULES RIGHT: # of nodules measured on right: 0 LEFT: # of nodules measured on left: 2 1. 1.5 X 0.9 x 1.2 cm, mid, solid or almost completely solid, hypoechoic nodule, which is wider [place] n tall, with smooth margins, without echogenic foci. This has increased in size minimally from the co mparison. TR 4-find needle aspiration. Prior size: 1.4 x 0.9 x 1.1 cm 2. 1.4 X 0.6 x 1.1 cm, lower , solid or almost completely solid, hypoechoic nodule, which is wider than tall, with smooth margins, without echogenic foci. Prior size: 1.3 x 0.6 x 1.0 cm ISTHMUS: # of nodules measured in the isthmus: 0 Bilateral neck scanned, no evidence of lymphadenopathy. IMPRESSION: 1. Moderately suspicious nodule. Fine needle aspiration can be performed. 2017 ACR TI-RADS LEVEL: TI-RADS 4 - Moderately Suspicious: Follow if > 1 cm, FNA if > 1.5 cm *Highest TI-RADS level nodule reported [email or web address] [facility], , 06/05/2024 1:30 PM
== END | disposition home or self-care (01) ==
LOC: RADUSWWP 12:08
PROVIDERS: ATTEND Family Medicine
DX: E04.2 Nontoxic multinodular goiter (principal)
CPT/HCPCS: 76536

== ENCOUNTER 2024-06-14 08:15 | Day surgery (SDC) | payer MEDICARE ==
[2024-06-14] MEDS: ALPRAZolam 0.25 MG TAB PO STA (08:41)
[2024-06-14 08:50] VITALS: RESP 18; TEMP 97.8
[2024-06-14 10:56] VITALS: BP 129/77; PULSE 66
--- NOTE | 2024-06-14 13:12 | US ---
EXAMINATION TYPE: US FNA thyroid first lesion DATE OF EXAM: 06/14/2024 10:29 AM COMPARISON: 06/05/2024 CLINICAL INDICATION: Female, 74 years old with history of E04.1 NONTOXIC SINGLE THYROID NODULE, , RADIOLOGIST: Dr. Yoon PROCEDURE: The 1.5 cm left midpole TR4 hypoechoic solid nodule is identified and targeted for FNA. The procedure, along with the risks and complications were discussed with the patient. Patient agreed to proceed with the procedure. A consent was signed and placed in patient's chart. Maximum sterile barrier technique was utilized. Timeout was performed by myself. The left side of the neck was sterilely prepped and draped in the usual fashion. 5 milliliters of 1% Lidocaine were utili zed to anesthetize the superficial and deep soft tissues. Following that, under ultrasound guidance, 5 passes were made into the nodule with 5 cc syringe sucti on. After each pass, the sample was placed on a slide and then sent for pathology. Upon conclusion, hemostasis was achieved, and patient was discharged home in satisfactory condition. IMPRESSION: Successful FNA of the 1.5 cm TR4 nodule at the left midpole. Pathology pending. [facility], , 06/14/2024 1:10 PM
== END 2024-06-14 11:00 | disposition home or self-care (01) ==
LOC: RADPROMAIN 08:15
PROVIDERS: ATTEND Family Medicine
DX: E04.1 Nontoxic single thyroid nodule (principal)
CPT/HCPCS: 10005; 88173; 88305

== ENCOUNTER 2024-06-29 12:27 | Day surgery (SDC) | payer MEDICARE ==
[2024-06-29 13:51] VITALS: RESP 16; TEMP 97.3
[2024-06-29 14:32] VITALS: BP 128/75; PULSE 65
--- NOTE | 2024-06-29 14:36 | US ---
EXAMINATION TYPE: US FNA thyroid first lesion DATE OF EXAM: 06/29/2024 2:26 PM CLINICAL INDICATION:Female, 74 years old with history of E04.1 NONTOXIC SINGLE THYROID NODULE; TR4, t hyroid nodule left-sided. COMPARISON: Prior study June 14, 2024 and older studies. ATTENDING: Dr. Andrade PROCEDURE: Informed consent was obtained. The risks and benefits of the procedure were discussed with the patien t including possibility of nondiagnostic result. The site was marked. Timeout procedure was performed Ultrasound imaging redemonstrates a 1.5 cm hypoechoic solid nodule left thyroid The patient was prepped, draped in the usual sterile fashion, and locally anesthetized with 1% lidoca ine. Five fine needle aspiration were then performed with a 25 gauge needle. On-site pathology was p resent due to prior nondiagnostic results. They confirmed adequate sample. Patient tolerated the pro cedure without incident and was sent home in stable condition. IMPRESSION: Successful ultrasound guided fine needle aspiration of left-sided thyroid nodule. Pathology pending. [facility], , 06/29/2024 2:34 PM
== END 2024-06-29 14:45 | disposition home or self-care (01) ==
LOC: RADPROMAIN 12:27
PROVIDERS: ATTEND Family Medicine
DX: E04.1 Nontoxic single thyroid nodule (principal)
CPT/HCPCS: 10005; 88173; 88305

== ENCOUNTER → 2024-07-31 | Outpatient (CLI) | payer MEDICARE ==
--- NOTE | 2024-07-31 13:29 | MM ---
Reason for Exam: Screening (asymptomatic). Last screening mammogram was performed 12 month(s) ago. Patient History: Menarche at age 16. First Full-Term at age 29. Postmenopausal. Other cancer, age 61. Patient used Hormonal Contraceptives for 5 years. Risk Values: Harmony 5 year model risk: 1.8%. NCI Lifetime model risk: 4.6%. Prior Study Comparison: 07/23/2021 Bilateral Screening Mammogram, [facility]. 07/24/2022 Bilateral MG 3D screening mammo w/cad, [facility]. 07/26/2023 Bilateral MG 3D screening mammo w/cad, [facility]. Tissue Density: The breasts are heterogeneously dense, which may obscure small masses. Findings: Analyzed By CAD. 14 mm asymmetric density at the approximate left 12 1:00 position 5 cm from the nipple. Additional views recommended. No distinct right breast mass. Benign calcification right breast. Overall Assessment: Incomplete: need additional imaging evaluation, BI-RAD 0 Management: Diagnostic Mammogram of the left breast. . Patient should continue monthly self-breast exams. A clinical breast exam by your physician is recommended on an annual basis. This exam should not preclude additional follow-up of suspicious palpable abnormalities. Note on Harmony scores and lifetime risk: 1. A Harmony score greater than 3% is considered moderate risk. If this is the case, consider specialist referral to assess eligibility for a risk reducing agent. 2. If overall lifetime risk for the development of breast cancer is 20% or higher, the patient may qualify for future screening with alternating mammogram and breast MRI. [facility], , 07/31/2024 1:27 PM. Electronically signed and approved by: Kwesi Suazo M.D. Radiologis
== END | disposition home or self-care (01) ==
LOC: RADMAMWWP 12:46
PROVIDERS: ATTEND Family Medicine
DX: Z12.31 Encounter for screening mammogram for malignant neoplasm of breast (principal); R92.333 Mammographic heterogeneous density, bilateral breasts; Z78.0 Asymptomatic menopausal state; Z92.0 Personal history of contraception
CPT/HCPCS: 77063; 77067

== ENCOUNTER → 2024-08-02 | Outpatient (CLI) | payer MEDICARE ==
--- NOTE | 2024-08-02 13:01 | MM ---
Reason for Exam: Additional evaluation requested from abnormal screening. Last screening mammogram was performed less than 1 month ago. Patient History: Menarche at age 16. First Full-Term at age 29. Postmenopausal. Other cancer, age 61. Patient used Hormonal Contraceptives for 5 years. Risk Values: Harmony 5 year model risk: 1.8%. NCI Lifetime model risk: 4.6%. Prior Study Comparison: 07/24/2022 Bilateral MG 3D screening mammo w/cad, [facility]. 07/26/2023 Bilateral MG 3D screening mammo w/cad, [facility]. 07/31/2024 Bilateral MG 3D screening mammo w/cad, [facility]. Tissue Density: Left: The breasts are heterogeneously dense, which may obscure small masses. Findings: Analyzed By CAD. Asymmetric density reflect summation shadow. No underlying mass is appreciated at this time. Overall Assessment: Benign, BI-RAD 2 Management: Screening Mammogram of both breasts in 1 year. . Results were given to the patient verbally at the time of exam. Patient should continue monthly self-breast exams. A clinical breast exam by your physician is recommended on an annual basis. This exam should not preclude additional follow-up of suspicious palpable abnormalities. Note on Harmony scores and lifetime risk: 1. A Harmony score greater than 3% is considered moderate risk. If this is the case, consider specialist referral to assess eligibility for a risk reducing agent. 2. If overall lifetime risk for the development of breast cancer is 20% or higher, the patient may qualify for future screening with alternating mammogram and breast MRI. [facility], , 08/02/2024 12:58 PM. Electronically signed and approved by: Kwesi Suazo M.D. Radiologis
== END | disposition home or self-care (01) ==
LOC: RADMAMWWP 12:37
PROVIDERS: ATTEND Family Medicine
DX: R92.8 Other abnormal and inconclusive findings on diagnostic imaging of breast (principal); R92.332 Mammographic heterogeneous density, left breast; Z78.0 Asymptomatic menopausal state; Z92.0 Personal history of contraception
CPT/HCPCS: 77061; 77065